=== PATIENT | female | born 1990 | race Asian ===

== ENCOUNTER 2018-12-23 09:14 | Outpatient (CLI) | payer OTHER | END 2018-12-23 14:00 | disposition home or self-care (01) | LOC: SUS 09:14 | PROVIDERS: ATTEND Obstetrics & Gynecology | DX: Z34.92 Encounter for supervision of normal pregnancy, unspecified, second trimester (principal); Z3A.19 19 weeks gestation of pregnancy | CPT/HCPCS: 76805-TC ==

== ENCOUNTER 2019-04-28 10:55 | Observation (INO) | payer OTHER ==
[~2019-04-28] VITALS: Ht 175.3 cm; Wt 77.1 kg
== END 2019-04-28 13:47 | disposition home or self-care (01) ==
LOC: SPU 10:55
PROVIDERS: ADMIT Obstetrics & Gynecology; ATTEND Obstetrics & Gynecology
DX: O36.5930 Maternal care for other known or suspected poor fetal growth, third trimester, not applicable or unspecified (principal); Z3A.37 37 weeks gestation of pregnancy
CPT/HCPCS: G0378

== ENCOUNTER 2019-05-02 11:46 | Observation (INO) | payer OTHER | END 2019-05-02 12:57 | disposition home or self-care (01) | LOC: SPU 11:46 | PROVIDERS: ADMIT Obstetrics & Gynecology; ATTEND Obstetrics & Gynecology | DX: Z34.93 Encounter for supervision of normal pregnancy, unspecified, third trimester (principal); Z87.59 Personal history of other complications of pregnancy, childbirth and the puerperium; Z3A.37 37 weeks gestation of pregnancy | CPT/HCPCS: 59025; G0378 ==

== ENCOUNTER 2019-05-05 10:06 | Observation (INO) | payer OTHER ==
[~2019-05-05] VITALS: Ht 175.3 cm; Wt 78.9 kg
== END 2019-05-05 10:50 | disposition home or self-care (01) ==
LOC: SPU 10:06
PROVIDERS: ADMIT Obstetrics & Gynecology; ATTEND Obstetrics & Gynecology
DX: Z34.93 Encounter for supervision of normal pregnancy, unspecified, third trimester (principal); Z3A.38 38 weeks gestation of pregnancy
CPT/HCPCS: G0378

== ENCOUNTER 2019-05-10 11:33 | Observation (INO) | payer OTHER | END 2019-05-10 12:35 | disposition home or self-care (01) | LOC: SPU 11:33 | PROVIDERS: ADMIT Obstetrics & Gynecology; ATTEND Obstetrics & Gynecology | DX: Z34.93 Encounter for supervision of normal pregnancy, unspecified, third trimester (principal); Z3A.38 38 weeks gestation of pregnancy | CPT/HCPCS: G0378 ==

== ENCOUNTER 2019-05-15 11:40 | Observation (INO) | payer OTHER ==
[~2019-05-15] VITALS: Ht 175.3 cm; Wt 77.1 kg
== END 2019-05-15 12:20 | disposition home or self-care (01) ==
LOC: SPU 11:40
PROVIDERS: ADMIT Obstetrics & Gynecology; ATTEND Obstetrics & Gynecology
DX: Z34.93 Encounter for supervision of normal pregnancy, unspecified, third trimester (principal); Z87.59 Personal history of other complications of pregnancy, childbirth and the puerperium; Z3A.39 39 weeks gestation of pregnancy
CPT/HCPCS: G0378

== ENCOUNTER 2019-05-18 12:48 | Observation (INO) | payer OTHER | END 2019-05-18 13:56 | disposition home or self-care (01) | LOC: SPU 12:48 | PROVIDERS: ADMIT Obstetrics & Gynecology; ATTEND Obstetrics & Gynecology | DX: O36.5930 Maternal care for other known or suspected poor fetal growth, third trimester, not applicable or unspecified (principal); Z3A.39 39 weeks gestation of pregnancy | CPT/HCPCS: 59025; 81002; G0378 ==

== ENCOUNTER 2019-05-22 10:25 | Inpatient (IN) | payer OTHER ==
[~2019-05-22] VITALS: Ht 175.3 cm; Wt 80.3 kg
[2019-05-22] MEDS ORDERED: LR 1,000 ML IV ONE (10:36)
[2019-05-22] MEDS ORDERED: CEFAZOLIN 2 GM IVPB PREMIX 50 ML IV ONE (10:45)
[2019-05-22 11:17] LABS: BASOPHILS % (AUTO) 1.1 % (0.0-2.0); EOSINOPHILS % (AUTO) 0.9 % (0.0-4.0); HEMATOCRIT 37.5 % (36-48); HEMOGLOBIN 12.8 g/dL (12.0-16.0); LYMPHOCYTES % (AUTO) 24.6 % (20.5-51.5); MEAN CORPUSCULAR HEMOGLOBIN 34 pg (27-31); MEAN CORPUSCULAR HGB CONC 34 % (32-36); MEAN CORPUSCULAR VOLUME 98 fL (79.0-98.0); MONOCYTES # (AUTO) 0.3 K/uL (0.0-1.0); MONOCYTES % (AUTO) 6.8 % (1.7-9.3); NEUTROPHILS # (AUTO) 2.7 K/uL (1.8-7.7); NEUTROPHILS % (AUTO) 66.6 % (40.0-70.0); PLATELET COUNT (AUTO) 201 K/uL (130-430); RED BLOOD CELL COUNT(AUTO) 3.83 MIL/uL (4.2-6.2); RED CELL DISTRIBUTION WIDTH 13.2 % (9.0-15.0); WHITE BLOOD COUNT (AUTO) 4.1 K/uL (4.8-10.8)
[2019-05-22 12:37] LABS: BILIRUBIN,URINE NEGATIVE (NEGATIVE); BLOOD, URINE 1+ (NEGATIVE); COLOR,URINE YELLOW (YELLOW); GLUCOSE,URINE NEGATIVE (NEGATIVE); KETONES,URINE NEGATIVE (NEGATIVE); LEUKOCYTE ESTERASE ,URINE 3+ (NEGATIVE); NITRITE, URINE NEGATIVE (NEGATIVE); PH,URINE 7.5 (5.0-8.0); PROTEIN URINE NEGATIVE (NEGATIVE); UROBILINOGEN,URINE 0.2 (0.2-1.0)
[2019-05-22 12:42] LABS: CLARITY/URINE SLIGHTLY HAZY (CLEAR)
[2019-05-22 12:47] LABS: BACTERIA,URINE MODERATE /HPF (None Seen); MUCUS,URINE 2+ /LPF (None Seen)
[2019-05-22] MEDS ORDERED: BUPIVACAINE /PF 0.75% 10 ML VIAL INJ ONE (14:03)
[2019-05-22] MEDS ORDERED: MORPHINE SULFATE 10MG/10ML PF AMP EP ONE (14:03)
[2019-05-22] MEDS ORDERED: NS IRRIG SOLN 1000 ML IR ONE (14:03)
[2019-05-22] MEDS ORDERED: ePHEDrine sulfate 50 MG/ML VIAL IVP ONE (14:03)
[2019-05-22] MEDS ORDERED: DEXAMETHASONE SOD PHOSPHATE 4 MG/ML VIAL IVP ONE (14:03)
[2019-05-22] MEDS ORDERED: OXYTOCIN 10 UNIT/ML VIAL IV ONE (14:03)
[2019-05-22] MEDS ORDERED: LR 1,000 ML IV.SOLN IV ONE (14:03)
[2019-05-22] MEDS ORDERED: ePHEDrine sulfate 50 MG/ML VIAL IVP PRN (15:15)
[2019-05-22] MEDS ORDERED: ONDANSETRON HCL 4 MG/2 ML VIAL IVP PRN (15:15)
[2019-05-22] MEDS ORDERED: METOCLOPRAMIDE HCL 10 MG/2 ML VIAL IVP PRN (15:15)
[2019-05-22] MEDS: MEPERIDINE HCL/PF 25 MG/ML DISP.SYRIN IVP PRN ×2 (15:25→15:30)
[2019-05-22] MEDS ORDERED: MEPERIDINE HCL/PF 25 MG/ML DISP.SYRIN ONE (15:43)
[2019-05-22] MEDS ORDERED: OXYTOCIN/0.9 % SODIUM CHLORIDE 1,000 ML IV ONE ×2 (15:53→17:29)
[2019-05-22] MEDS ORDERED: MEASLES,MUMPS&RUBELLA VACC/PF 12500 UNIT/0.5 ML VIAL SUBQ PRN (17:30)
[2019-05-22] MEDS ORDERED: LANOLIN 7 GM OINT. TP PRN (17:30)
[2019-05-22] MEDS ORDERED: OXYCODONE/ACETAMINOPHEN 5-325 TABLET PO PRN ×2 (17:30)
[2019-05-22] MEDS ORDERED: ANUSOL 1 EA SUPP.RECT (PREPARATION H) RC PRN (17:30)
[2019-05-22] MEDS ORDERED: SIMETHICONE 80 MG TAB.CHEW PO PRN (17:30)
[2019-05-22] MEDS ORDERED: DIPH-TET-PERTUS Vaccine 0.5 ML VIAL (ADACEL) I.M. PRN (17:30)
[2019-05-22 18:46] VITALS: BP_SYST 118
[2019-05-22] MEDS: CEFAZOLIN 1 GM IVPB PREMIX 50 ML IV SCH (19:57)
[2019-05-22] MEDS ORDERED: TEMAZEPAM 15 MG CAPSULE PO PRN (21:00)
[2019-05-23] MEDS ORDERED: IBUPROFEN 600 MG TABLET PO SCH
[2019-05-23] MEDS: KETOROLAC TROMETHAMINE 30 MG VIAL IVP SCH ×3 (00:31→12:30)
[2019-05-23] MEDS: CEFAZOLIN 1 GM IVPB PREMIX 50 ML IV SCH ×2 (02:04→08:46)
[2019-05-23 06:50] LABS: BASOPHILS # (AUTO) 0.1 K/uL (0.0-0.2); BASOPHILS % (AUTO) 0.5 % (0.0-2.0); EOSINOPHILS % (AUTO) 0.1 % (0.0-4.0); HEMATOCRIT 31.9 % (36-48); HEMOGLOBIN 10.9 g/dL (12.0-16.0); LYMPHOCYTES # (AUTO) 1.2 K/uL (1.0-5.5); LYMPHOCYTES % (AUTO) 10.6 % (20.5-51.5); MEAN CORPUSCULAR HEMOGLOBIN 34 pg (27-31); MEAN CORPUSCULAR HGB CONC 34 % (32-36); MEAN CORPUSCULAR VOLUME 99 fL (79.0-98.0); MONOCYTES # (AUTO) 0.6 K/uL (0.0-1.0); MONOCYTES % (AUTO) 5.5 % (1.7-9.3); NEUTROPHILS # (AUTO) 9.6 K/uL (1.8-7.7); NEUTROPHILS % (AUTO) 83.3 % (40.0-70.0); PLATELET COUNT (AUTO) 169 K/uL (130-430); RED BLOOD CELL COUNT(AUTO) 3.22 MIL/uL (4.2-6.2); RED CELL DISTRIBUTION WIDTH 13.4 % (9.0-15.0); WHITE BLOOD COUNT (AUTO) 11.5 K/uL (4.8-10.8)
[2019-05-23] MEDS ORDERED: IBUPROFEN 600 MG TABLET PO ONE (12:00)
[2019-05-23] MEDS: DOCUSATE SODIUM 100 MG CAPSULE PO PRN (17:58)
[2019-05-23] MEDS ORDERED: IBUPROFEN 600 MG TABLET ONE (18:11)
[2019-05-24] MEDS: IBUPROFEN 600 MG TABLET PO SCH ×3 (05:56→12:13)
[2019-05-24] MEDS: DOCUSATE SODIUM 100 MG CAPSULE PO PRN (12:13)
== END 2019-05-24 15:45 | disposition home or self-care (01) | DRG 788 ==
LOC: SPU 10:25
PROVIDERS: ADMIT Obstetrics & Gynecology; ATTEND Obstetrics & Gynecology
PROC: 10D00Z1 Extraction of Products of Conception, Low, Open Approach (ICD-10-PCS; principal; 2019-05-22 13:30)
DX: O41.03X0 Oligohydramnios, third trimester, not applicable or unspecified (principal); O34.43 Maternal care for other abnormalities of cervix, third trimester; O69.81X0 Labor and delivery complicated by cord around neck, without compression, not applicable or unspecified; Z3A.40 40 weeks gestation of pregnancy; Z37.0 Single live birth
CPT/HCPCS: 36415; 81000-TC; 85025; 86592; 86886; 86900; 86901; 94760; J0690; J1100; J1885; J2175; J2274; J2590; J3490; J7120